=== PATIENT | female | born 1965 | race Two or more races ===

== ENCOUNTER 2021-09-04 05:52 | Day surgery (SDC) | payer OTHER ==
[~2021-09-04 05:52] MED LIST: DEPAKOTE ER250 MG PO; NORVASC2.5 M1 PO; PLAVIX75 MG PO; SYNTHROID100 MCG PO; TOPROL XL25 M1 PO
== END 2021-09-04 17:45 | disposition home or self-care (01) ==
LOC: CIR.AMB 05:52
PROVIDERS: ATTEND Orthopaedic Surgery Hand Surgery
DX: S63.112A Subluxation of metacarpophalangeal joint of left thumb, initial encounter (principal); Z91.013 Allergy to seafood; Z88.6 Allergy status to analgesic agent; Z88.0 Allergy status to penicillin; I10 Essential (primary) hypertension; I25.2 Old myocardial infarction; J45.909 Unspecified asthma, uncomplicated; Z86.16 Personal history of COVID-19; E03.9 Hypothyroidism, unspecified; Z86.73 Personal history of transient ischemic attack (TIA), and cerebral infarction without residual deficits